=== PATIENT | male | born 1930 | race Caucasian/White ===

== ENCOUNTER 2017-09-26 17:28 | Emergency (ER) | payer OTHER ==
[~2017-09-26] VITALS: Ht 152.4 cm; Wt 91.6 kg
[~2017-09-26 17:28] MED LIST: ASA-EC81 MG PO; CARVEDILOL3.125 MG; CIPRO500 MG PO; COZAAR PO; COZAAR25 MG; Coreg PO; ELLIPTA SPEPROC; FLOVENT 110MCG7.9 GM IH; FLOVENT DISKU100 MCG; FUROSEMIDE10 MG/M1; GABAPENTIN100 MG; GLIPIZIDE2.5 MG/BO1; LASIX20 MG PO; MEDROLPACK PO; Neurontin PO; SIMVASTATIN20 MG; SIMVASTATIN5 MG; SYMBICORT 16010.2 GM IH; TAMS0.4C; TAMS0.4C PO; TAMSULOSIN HCL0.4 MG PO; VENTOLIN HFA18 GM IH; VITAMIN D31000 UNI1; XARELTO20 MG PO; XOPENEX HFA15 GM IH; ZoCOR 20MG TABLET PO; [UNRECOGNIZED DRUG - OTHER]
== END 2017-09-26 21:51 | disposition home or self-care (01) ==
LOC: ER 17:28
DX: R31.29 Other microscopic hematuria (principal)

== ENCOUNTER 2018-03-10 17:55 | Emergency (ER) | payer OTHER ==
[~2018-03-10] VITALS: Ht 160 cm; Wt 93.0 kg
== END 2018-03-11 01:22 ==
LOC: ER 17:55
DX: R06.02 Shortness of breath (principal); J44.9 Chronic obstructive pulmonary disease, unspecified

== ENCOUNTER 2018-03-31 16:12 | Emergency (ER) | payer OTHER ==
[~2018-03-31] VITALS: Ht 152.4 cm; Wt 91.6 kg
[2018-04-01] MEDS ORDERED: TUSSI-PRES B LIQ5 ML PO (11:51)
[2018-04-01] MEDS ORDERED: MEDROLPACK PO (11:51)
[2018-04-01] MEDS ORDERED: DOXYCYCLINE HY100 M2 PO (11:51)
[2018-04-01] MEDS ORDERED: TESSALON PERLE100 M1 PO (11:51)
== END 2018-04-01 12:46 | disposition home or self-care (01) ==
LOC: ER 16:12
DX: J44.9 Chronic obstructive pulmonary disease, unspecified (principal); J45.998 Other asthma

== ENCOUNTER 2018-05-03 14:14 | Emergency (ER) | payer OTHER ==
[~2018-05-03] VITALS: Ht 154.9 cm; Wt 91.6 kg
[~2018-05-03 14:14] MED LIST changes: +DOXYCYCLINE HY100 M2 PO; +TESSALON PERLE100 M1 PO; +TUSSI-PRES B LIQ5 ML PO
[2018-05-04] MEDS ORDERED: ZYNCOF 20-400120 ML PO (01:57)
[2018-05-04] MEDS ORDERED: ADVAIR 100-501 EACH IH (01:57)
[2018-05-04] MEDS ORDERED: PROVENTIL HFA6.7 GM IH ×2 (01:57→02:00)
== END 2018-05-04 02:04 | disposition home or self-care (01) ==
LOC: ER 14:14
DX: J45.998 Other asthma (principal)